=== PATIENT | female | born 1975 | race Two or more races ===

== ENCOUNTER 2024-09-27 14:58 | Emergency (ER) | payer MEDICAID, OTHER ==
[~2024-09-27] VITALS: Ht 149.9 cm; Wt 85.2 kg
--- NOTE | 2024-09-27 16:11 | DVH ---
EXAM: XR Chest, 2 Views CLINICAL INDICATION: COUGH X MONTHS TECHNIQUE: Frontal and lateral views of the chest. COMPARISON: None FINDINGS: LUNGS AND PLEURAL SPACES: Unremarkable. No consolidation. No pneumothorax. HEART: Unremarkable. No cardiomegaly. MEDIASTINUM: Unremarkable. Normal mediastinal contour. BONES/JOINTS: Unremarkable. No acute fracture. OTHER FINDINGS: . None. IMPRESSION: No acute cardiopulmonary process.
[2024-09-27 16:14] VITALS: BP 112/74; TEMP 98.1
[2024-09-27 16:15] VITALS: PULSE 90; RESP 16; O2SAT 96
--- NOTE | 2024-09-27 16:32 | ED.PDOC ---
SOB-HPI HPI Comments A 48 YEAR OLD FEMALE PRESENTS TO THE ED WITH COMPLAINT OF COUGH AND SWOLLEN LYMPH NODE. PATIENT STATES SHE HAS BEEN EXPERIENCING A COUGH AND CONGESTION FOR THE PAST 1.5 MONTHS AND NOTICED THAT SHE HAD A SWOLLEN LYMPH NODE ON LEFT SIDE OF HER NECK 2 DAYS AGO. PATIENT REPORTS SHE WENT TO AN URGENT CARE FOR THIS SWOLLEN LYMPH NODE AND WAS TOLD TO COME TO THE ED FOR EVALUATION. PATIENT DENIES FEVER, CHILLS, SHORTNESS OF BREATH, CHEST PAIN, ABDOMINAL PAIN, NAUSEA, VOMITING, HEADACHE, OR OTHER COMPLAINTS. NO OTHER SYMPTOMS OR MODIFYING FACTORS AT THIS TIME. PATIENT IS ALERT, ORIENTED X 4, AND HAS STEADY GAIT. Chief Complaint: Flu like Time Seen by MD: 15:02 Primary Care Provider: FAHAD Colon notes: Nurses Notes, Medications, Allergies Information Source: Patient Mode of Arrival: Ambulatory Severity: Moderate Timing: Days Duration: Since onset, Days Context: Spontaneous Onset PE Risk Factors: None History of: Recent URI Prehospital treatment: None Modifying Factors: Nothing Associated Signs and Symptoms: Cough, Nasal Congestion If cough with SOB: Productive Past Medical History PAST MEDICAL HISTORY: Denies Surgical History: Denies all surgeries REGISTER OF WILLS History: No Pertinent REGISTER OF WILLS History Family History Family History: Reviewed,noncontributory to illness Social History Smoker: Non-Smoker Alcohol: Denies ETOH Use Drugs: Denies Drug Use Lives In: Home Constitutional: denies: chills, diaphoresis, fatigue, fever, malaise, sweats, weakness, others EENTM: reports: nose congestion, others (SWOLLEN LYMPH NODE OF LEFT-SIDE OF NECK); denies: blurred vision, double vision, ear bleeding, ear discharge, ear drainage, ear pain, ear ringing, eye pain, eye redness, hearing loss, mouth pain, mouth swelling, nasal discharge, nose bleeding, nose pain, photophobia, tearing, throat pain, throat swelling, voice changes Respiratory: reports: cough; denies: hemoptysis, orthopnea, SOB at rest, shortness of breath, SOB with excertion, stridor, wheezing, others Cardiovascular: denies: chest pain, dizzy spells, diaphoresis, Dyspnea on exertion, edema, irregular heart beat, left arm pain, lightheadedness, palpitations, PND, syncope, others Gastrointestinal: denies: abdomen distended, abdominal pain, blood streaked bowels, constipated, diarrhea, dysphagia, difficulty swallowing, hematemesis, melena, nausea, poor appetite, poor fluid intake, rectal bleeding, rectal pain, vomiting, others Genitourinary: denies: abnormal vagina bleeding, burning, dyspareunia, dysuria, flank pain, frequency, hematuria, incontinence, pain, , vagina discharge, urgency, others Neurological: denies: dizziness, fainting, headache, left sided numbness, left sided weakness, numbness, paresthesia, pre-existing deficit, right sided numbness, right sided weakness, seizure, speech problems, tingling, tremors, weakness, others Musculoskeletal: denies: back pain, gout, joint pain, joint swelling, muscle pain, muscle stiffness, neck pain, others Integumetry: denies: bruises, change in color, change in hair/nails, dryness, laceration, lesions, lumps, rash, wounds, others Allergic/Immunocompromised: denies: Difficulty Healing, Frequent Infections, Hives, Itching, others Hematologic/Lymphatic: denies: anemia, blood clots, easy bleeding, easy bruising, swollen glands, others Endocrine: denies: excessive hunger, excessive sweating, excessive thirst, excessive urination, flushing, intolerance to cold, intolerance to heat, unexplained weight gain, unexplained weight loss, others Psychiatric: denies: anxiety, bipolar disorder, depression, hopeless, panic disorder, schizophrenia, sleepless, suicidal, others All Other Systems: Reviewed and Negative Physical Exam General Appearance: Obese HEENT: Normal ENT Inspection, PERRL/EOMI, Pharynx Normal, TMs Normal Neck: Full Range of Motion, Lymphadenopathy (L) (TENDERNESS AND MILD SWELLING ON LEFT UPPER CERVICAL LYMPH NODE. ), Normal Inspection, Supple, Tender Lateral (LEFT UPPER CERVICAL LYMPH NODE. ) Respiratory: Chest Non-Tender, Expiration, No Accessory Muscle Use, No Respiratory Distress, Rhonchi Cardiovascular: No Edema, No JVD, No Murmur, No Gallop, Normal Peripheral Pulses, Regular Rate/Rhythm Breast Exam: Deferred Gastrointestinal: No Organomegaly, Non Tender, No Pulsatile Mass, Normal Bowel Sounds, Soft Genitalia: Deferred Pelvic: Deferred Rectal: Deferred Extremities: No calf tenderness, Normal capillary refill, Normal inspection, Normal range of motion, Non-tender, No pedal edema Musculoskeletal : Apperance: Normal Neurologic: Alert, neonatal surgeon II-XII nml as Tested, No Motor Deficits, Normal Affect, Normal Mood, No Sensory Deficits Cerebellar Function: Normal Reflexes: Normal Skin: Dry, Normal Color, Warm Peripheral Pulses: 2+ carotid (R), 2+ carotid (L) Lymphatic: No Adenopathy Was a procedure done? Was a procedure done?: No Differential Dx Differential Diagnosis: Bronchitis, Pneumonia, Sinusitis, Allergic Rhinitis, Otitis Media, Pharyngitis, URI, Other (CERVICAL ADENITIS ) X-Ray, Labs, Meds, VS Vital Signs Date Time Temp Pulse Resp B/P (MAP) Pulse Ox O2 Delivery O2 Flow Rate FiO2 09/27/24 16:15 90 16 96 Room Air 09/27/24 16:14 98.1 90 16 112/74 (87) 96 98.1 09/27/24 15:20 16 96 Room Air* 0 21 09/27/24 15:20 98.1 90 16 112/79 (90) 96 98.1 Current Medications Medications (Trade) Dose Ordered Sig/Margarita Route Start Time Stop Time Status Last Admin Ceftriaxone Sodium (Rocephin) 1,000 mg ONCE ONCE IM 09/27/24 17:15 09/27/24 17:16 DC 09/27/24 17:24 Lidocaine HCl (Xylocaine 1%) 2.1 ml ONCE ONCE IJ 09/27/24 17:30 09/27/24 17:31 09/27/24 17:24 EXAM: XR Chest, 2 Views CLINICAL INDICATION: COUGH X MONTHS TECHNIQUE: Frontal and lateral views of the chest. COMPARISON: None FINDINGS: LUNGS AND PLEURAL SPACES: Unremarkable. No consolidation. No pneumothorax. HEART: Unremarkable. No cardiomegaly. MEDIASTINUM: Unremarkable. Normal mediastinal contour. BONES/JOINTS: Unremarkable. No acute fracture. OTHER FINDINGS: . None. IMPRESSION: No acute cardiopulmonary process. ATED BY: SONNY GREEN MD DICTATED DATE/TIME: 09/27/241608 SIGNED BY: SONNY GREEN MD SIGNED DATE/TIME: 09/27/241608 CC: Exam: US SOFT TISSUE NECK Date: 09/27/2024 04:33 PM Clinical History: Palpable lump Comparison: None Technique: Targeted sonographic evaluation of the soft tissues of the left side of the neck was obtained utilizing grayscale and color Doppler imaging. Findings: There is a an ovoid soft tissue nodule measuring 1.7 x 0.9 x 1 cm in the neck on the left corresponding to a lymph node. IMPRESSION: 1. Findings in the left neck correspond to a lymph node measuring 1.7 x 0.9 x 1 cm. ATED BY: MAIKOL LIPSCOMB Jr., DO DICTATED DATE/TIME: 09/27/241705 SIGNED BY: MAIKOL LIPSCOMB Jr., SIGNED DATE/TIME: 09/27/241705 CC: X-Ray, Labs, Meds, VS Comment EXTERNAL MEDICAL RECORDS REVIEWED: [NONE] INDEPENDENT HISTORIANS: [NONE] SOCIAL DETERMINANTS OF HEALTH: [NONE] LABS ORDERED: NONE REVIEWED AND INTERPRETED RESULTS: NONE IMAGING ORDERED: XR CHEST, US SOFT TISSUE NECK: [INTERPRETED BY U.S. TECH.. LYMPH NODE ON LEFT SIDE OF HER NECK VISUALIZED MEASURING 1.7 CM X 1 CM. NO ABNORMALITY SEEN. PENDING RADIOLOGY REVIEW.] TREATMENTS ORDERED: ROCEPHIN 1G IM PROCEDURES PERFORMED: NONE CRITICAL CARE TIME: NONE I HAVE DISCUSSED THE PATIENT WITH THE ATTENDING PHYSICIAN DR. ALDANA AND HE AGREES WITH THE PATIENT'S PLAN OF CARE AND DISPOSITION. BASED ON HISTORY OF PRESENT ILLNESS, AND PHYSICAL EXAM, PATIENT WILL BE DISCHARGED HOME. DISCUSSED PLAN FOR DISCHARGE HOME WITH RX [KEFLEX]. MEDICATION WARNINGS GIVEN. SHARED DECISION MAKING: PATIENT INSTRUCTED TO FOLLOW UP WITH PRIMARY CARE PROVIDER IN 1-2 DAYS FOR RE-EVALUATION OF SYMPTOMS. PATIENT VERBALIZES UNDERSTANDING TO RETURN TO ED FOR NEW OR WORSENING SYMPTOMS OR IF FOLLOW UP WITH PCP CANNOT BE OBTAINED. PATIENT FEELS COMFORTABLE GOING HOME AT THIS TIME. ALL QUESTIONS ADDRESSED AT TIME OF DISCHARGE. Images Reviewed?: Images reviewed and evaluated by me Time of 1ST Reevaluation: 17:50 Reevaluation 1ST: Improved Patient Education/Counseling: Diagnosis, Treatment, Need For Follow Up Family Education/Counseling: Diagnosis, Treatment, Need For Follow Up Medical Screening: No EMC Exist At This Time Departure 1 Departure Time of Disposition: 17:50 Impression: Primary Impression: Acute bronchitis Qualified Codes: J20.9 - Acute bronchitis, unspecified Additional Impression: Acute cervical adenitis Disposition: 01 HOME / SELF CARE / HOMELESS Condition: Stable Additional Instructions: FOLLOW-UP WITH PCP IN 1 TO 2 DAYS. TAKE MEDICATIONS PRESCRIBED. RETURN TO ED FOR ANY NEW OR WORSENING SYMPTOMS. e-Prescriptions Naproxen (Naproxen) 500 Mg Tab 500 MG PO BID, #24 TAB Prov: MC PEARSON 09/27/24 Promethazine-Dm (Promethazine Dm 6.25-15 mg/5Ml) 1 Alyssa Alyssa 5 ML PO TID, #180 ML Prov: MC PEARSON 09/27/24 Cephalexin Monohydrate (Cephalexin) 500 Mg Cap 1 CAP PO QID, #40 CAP Prov: MC PEARSON 09/27/24 Discharged With: Self Critical Care Note Critical Care Time?: No Stability Stability form required: No Heart Score Heart Score: Heart Score Response (Comments) Value History N/A 0 EKG N/A 0 Age N/A 0 Risk Factors N/A 0 Troponin N/A 0 Total 0 I personally scribed for MC PEARSON ([email or web address]) on 09/27/24 at 16:32. Electronically submitted by Kevin Johnson (Trust[employer]). I personally scribed for MC PEARSON ([email or web address]) on 09/27/24 at 16:53. Electronically submitted by Kevin Johnson ([employer]). I personally scribed for MC PEARSON ([email or web address]) on 09/27/24 at 17:12. Electronically submitted by Kevin Johnson (Trustribe). MC PEARSON Sep 27, 2024 16:32
--- NOTE | 2024-09-27 17:08 | DVH ---
Exam: US SOFT TISSUE NECK Date: 09/27/2024 04:33 PM Clinical History: Palpable lump Comparison: None Technique: Targeted sonographic evaluation of the soft tissues of the left side of the neck was obtained utilizi ng grayscale and color Doppler imaging. Findings: There is a an ovoid soft tissue nodule measuring 1.7 x 0.9 x 1 cm in the neck on the left correspondi ng to a lymph node. IMPRESSION: 1. Findings in the left neck correspond to a lymph node measuring 1.7 x 0.9 x 1 cm.
[2024-09-27] MEDS: cefTRIAXone SOD 1,000 MG VL IM ONE (17:24)
[2024-09-27] MEDS: LIDOCAINE 1% HCL (LOCAL ANESTH.) INJ 20ML MDV IJ ONE (17:24)
[2024-09-27] MEDS ORDERED: CEPH500C PO (17:27)
[2024-09-27] MEDS ORDERED: NAPR-746 PO (17:27)
[2024-09-27] MEDS ORDERED: PROM1SOL4 PO (17:27)
== END 2024-09-27 17:40 | disposition home or self-care (01) ==
LOC: ER 15:05
DX: J20.9 Acute bronchitis, unspecified (principal); L04.0 Acute lymphadenitis of face, head and neck
CPT/HCPCS: 71046; 76536; 96372; 99285; J0696; J2003